=== PATIENT | female | born 1990 | race Caucasian/White ===

== ENCOUNTER → 2016-05-21 | Day surgery (SDC) | payer OTHER, MEDICARE ==
[~2016-05-21] VITALS: Ht 157.5 cm; Wt 68.0 kg
[~2016-05-21] MED LIST: ACIDOPHILUS1 CAP PO; ALPRAZOLAM0.25 M1 PO; ALPRAZOLAM0.5 M4 PO; ALTABAX15 GM TOP; AMBIEN 10MG10 MG PO; AMOXICILLIN500 M3 PO; ANTIVERT 25 MG25 MG PO; AVELOX400 MG PO; BACTRIM DS TAB1 EACH PO; BENEPROTEIN1 EACH PO; BENTYL20 MG PO; CILOXAN 0.50 GTT/1 B OPH; CIPRO 500MG TA500 MG PO; CIPROFLOXACIN500 M2 PO; CLOTRIMAZOLE15 GM TOP; CYANOCOBAL1000 MCG/2 IM; CYCLOBENZAPRINE10 M1 PO; DAKIN'S473 M1 TOP; DEPO-PROVE150 MG/1 M IM; DIFLUCAN 100MG100 MG PO; DILAUDID4 M1 PO; FLAG500 PO; FLUCONAZOLE200 MG PO; FOLIC ACID 1 MG PO; FOLIC ACID1 M1 PO; GABAPENTIN100 M2 PO; HYDROCODON-ACE1 EAC2; KEFLEX500 M1 PO; KEFLEX500 MG PO; LAMICTAL XR100 MG PO; LAMICTAL XR250 MG PO; LAMICTAL25 M1 PO; LAMOTRIGINE100 M2 PO; LAMOTRIGINE100 MG PO; LAMOTRIGINE25 M3 PO; LEVOFLOXACIN500 MG PO; LEVSIN/SL0.125 MG SL; LOMOTIL 0.025 M1 TAB PO; LOMOTIL 2.5-0.1 EACH PO; LOTRISONE CREAM15 GM TOP; MASON NATURAL325 MG PO; MEDROXYPROG150 MG/ML IM; MERCAPTOPURINE50 MG PO; METHOTREXATE25 MG/M2; MIRTAZAPINE7.5 M1 PO; MOTRIN 400 MG400 MG PO; MS CONTIN15 M1 PO; MS CONTIN15 MG PO; MULTI-DAY VITA1 EACH PO; NAPHCON A 0.02515 ML OPH; NEOMYCIN SULFA500 M1 PO; NORCO 325 MG-51 TAB PO; NYSTATIN15 G1 TOP; OMEPRAZOLE40 MG PO; PATADAY 2.5 ML2.5 ML OPH; PERCOCET 325 MG1 TA2 PO; PERCOCET 5-3251 EACH PO; PREDNISONE 20MG20 MG PO; PREDNISONE5 MG PO; PRILOSEC 20MG C20 MG PO; PRILOSEC40 MG PO; PROBIOTIC FORMU1 CA1 PO; PROMETHAZINE HC25 MG PR; PROMETHAZINE25 M1 PO; QUETIAPINE FUM100 MG PO; REGLAN10 MG PO; REGLAN5 MG PO; REMERON15 M2 PO; REMICADE I100 MG/10 IV; SEROQUEL 100MG100 MG PO; STELARA45 MG/0.5 SC; STELARA90 MG/1 ML INJ; STELARA90 MG/1 ML SC; STELARA90 MG/ML SC; TEMAZEPAM15 MG PO; TOBRAMYCIN 5 ML5 ML OPH; Theragran Vitamins PO; ULTRAM50 M1 PO; VANCOMYCIN HYD125 MG PO; VICODIN5-300 PO; VITAB121000 PO; VITAMIN B-121000 MC3 PO; VITAMIN C500 M6 PO; VITAMIN D1000 IU PO; VITAMIN D250000 UNIT PO; VITAMIN D31000 UNI1 PO; ZINC50 M2 PO; ZOFRAN 4MG ORALL4 MG PO; ZOFRAN ODT4 MG PO; ZOFRAN4 M1 PO; ZOLPIDEM TARTRA10 MG PO; [UNRECOGNIZED DRUG - OTHER] PO; [UNRECOGNIZED DRUG - SUPPLY] TP
--- NOTE | 2016-05-21 14:02 | Operative Report ---
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 It is chronic in nature secondary to a wound dehiscence after abdominal surgery secondary to Crohn's disease. We talked about the risks which included definitely visible scarring possibly unsightly symptomatic or infection as well as bleeding. I stated that the wound would need to be opened again of signs of infection should become evident and she would have once again a recurrence of an open wound requiring possibility of prolonged wound care. Once in agreement informed consent was signed. Taken to [facility] placed supine on the table Venodyne boots are placed and general anesthesia was established. The abdomen was prepped and draped in usual sterile fashion. Sitting for the dimensions described above was carried out into the subcutaneous tissue thin visible scar. Incidental small ventral hernia was identified. This was repaired with a 2-0 Prolene closure after ensuring fascial edges were free of tissue. Irrigation was carried out throughout. 3 layer closure was then carried out after excision of the scar for the dimensions described above. In addition Dermabond was used on the skin to make it watertight considering an adjacent colostomy
== END ==
LOC: STS 01:47
DX: T81.31XA Disruption of external operation (surgical) wound, not elsewhere classified, initial encounter (principal); K50.90 Crohn's disease, unspecified, without complications; Z90.49 Acquired absence of other specified parts of digestive tract; K43.9 Ventral hernia without obstruction or gangrene
CPT/HCPCS: 81025; 88304; J0131; J0690; J1100; J1885; J2250; J2405

== ENCOUNTER 2016-09-01 14:24 | Emergency (ER) | payer OTHER, MEDICARE ==
[~2016-09-01] VITALS: Ht 157.5 cm; Wt 65.3 kg
[~2016-09-01 14:24] MED LIST changes: -ALPRAZOLAM0.5 M4 PO; -CYCLOBENZAPRINE10 M1 PO; -DILAUDID4 M1 PO; -FOLIC ACID1 M1 PO; -GABAPENTIN100 M2 PO; -HYDROCODON-ACE1 EAC2; -KEFLEX500 M1 PO; -VITAMIN C500 M6 PO; -VITAMIN D31000 UNI1 PO; -ZINC50 M2 PO
--- NOTE | 2016-09-01 15:35 | ED SKIN/ALLERGY COMPLAINT ---
History of Present Illness General Chief Complaint: General Adult Stated Complaint: PT HAS A WOUND ON THE RT SIDE ? INFECTION Source: patient Exam Limitations: no limitations Allergies Coded Allergies: adhesive tape (Intermediate, RASH 05/18/16) minocycline (Intermediate, RASH 03/08/16) topiramate (From TOPAMAX) (Intermediate, SWELLING 05/18/16) clarithromycin (HIVES 03/08/16) clindamycin (HIVES 03/08/16) loteprednol (From Alrex) ( TOLD SEVERE ALLERGY AFTER DISPENSING, EYE SWELL 10/16) Triage Note: PT HAS CHRONIC WOUND TO RIGHT SIDE OF ABD AND PT THINKS SHE HAS AN INFECTION. PT HAD PART OF HER MUSCLE REMOVED FROM THE RIGHT SIDE OF HER AND SKIN FROM ANUS AND RECTUM USED FOR CLOSURE OF THE WOUND Triage Nurses Notes Reviewed? yes : No Patient currently breastfeeds: No HPI: This patient is a 26-year-old female with past medical history including Crohn's disease who is status post colectomy as well as anus and rectal removal on 07/20 who presented to the emergency department today sent in at the request of her visiting nurse for evaluation of possible wound infection. This patient had muscle removed from her right thigh in order to help with closure of another wound. She reported that her visiting nurse feels that the wound site is getting more infected. She reported that it is gaping, has pus drainage, and redness around it. She denied any pain, fevers, chills, difficult breathing, abdominal pain, nausea, or vomiting. (NEVIN CERDA,ZANDER) Vital Signs & Intake/Output Vital Signs & Intake/Output Vital Signs Date Time Temp Pulse Resp B/P B/P Pulse O2 O2 Flow FiO2 Mean Ox Delivery Rate 09/01 1921 98.4 85 18 112/66 98 Room Air Room Air ED Intake and Output 09/02 0000 09/01 1200 Intake Total Output Total Balance Patient 144 lb Weight Weight Reported by Patient Measurement Method Reconcile Medications Alprazolam 0.5 MG TABLET 1 TAB PO QPM SLEEP (Reported) Ascorbate Calcium (Vitamin C) (Unknown Strength) TABLET (Unknown Dose) PO DAILY SUPPLEMENT (Reported) Cephalexin (Keflex) 500 MG CAPSULE 2 CAP PO BID WOUND Cholecalciferol (Vitamin D3) (Vitamin D3) (Unknown Strength) CAPSULE (Unknown Dose) PO DAILY SUPPLEMENT (Reported) Cyanocobalamin (Vitamin B-12) (Cyanocobalamin Injection) 1,000 MCG/ML VIAL 1 ML IM Q60D SUPPLEMENT (Reported) Cyclobenzaprine HCl 10 MG TABLET 1 TAB PO BID MUSCLE SPASMS (Reported) Folic Acid 1 MG TABLET 1 TAB PO DAILY SUPPLEMENT (Reported) Gabapentin (Unknown Strength) CAPSULE (Unknown Dose) PO Q12H NERVE PAIN ( Reported) Hydrocodone/Acetaminophen (Hydrocodon-Acetaminophen 5-325) (Unknown Strength) TABLET (Unknown Dose) UNKNOWN (Reported) Hydromorphone HCl (Dilaudid) 4 MG TABLET 1 TAB PO DAILY PAIN (Reported) Lamotrigine 25 MG TABLET 2 TAB PO QPM MENTAL HEALTH (Reported) Medroxyprogesterone Acetate (Depo-Provera) 150 MG/1 ML VIAL 150 mg IM Q3M CONTROL (Reported) Ustekinumab (Stelara) 90 MG/ML SYRINGE 90 MG INJ Q8W CROHNS (Reported) ZINC (Unknown Strength) TABLET (Unknown Dose) PO DAILY SUPPLEMENT (Reported) (CECY KRISHNAMURTHY,MARY) Past History Travel History Traveled to [place] past 21 day No Medical History Any Pertinent Medical History? see below for history Neurological: migraine EENT: NONE Cardiovascular: TACHYCARDIA Respiratory: NONE Gastrointestinal: Crohn's disease (since age 9), ulcerative colitis, C DIFF TOTAL COLECTOMY Hepatic: cholelithiasis Renal: NONE Musculoskeletal: osteoarthritis, STAPH INFECTION ON FACE Psychiatric: bipolar disease, depression Endocrine: NONE Blood Disorders: NONE Cancer(s): NONE MARKETING COMMUNICATION MANAGER/Reproductive: NONE Other Medical Hx: PSORIASIS History of MRSA: No History of VRE: No History of CDIFF: No Pneumonia Vaccine: 01/21/16 Influenza Vaccine: 01/21/16 Surgical History Surgical History: hernia repair-umbilical, 06/09/2015: subtotal colectomy with ileostomy; 07/26/2015: i&d, washout of abdominal wound separation; 11/15/2015: exploration under anesthesia- no perianal fistula, but perineal & vaginal candidiasis (all per Dr. Ren) Psychosocial History Who do you live with Mother Services at Home Nursing, Physical Therapy What is your primary language Bulgarian Tobacco Use: Never used ETOH Use: denies use Illicit Drug Use: denies illicit drug use Family History Family History, If Any: FATHER (Crohn's Disease). , Age Unknown; Cause: Unknown cause of morbidity or mortality. BROTHER (Crohn's, A&W.). Age 26. MOTHER (A&W). Age 56. Hx Contributory? No (ZANDER ROONEY PA-C) Review of Systems Review of Systems Constitutional: Reports: no symptoms. EENTM: Reports: no symptoms. Respiratory: Reports: no symptoms. Cardiovascular: Reports: no symptoms. GI: Reports: no symptoms. Genitourinary: Reports: no symptoms. Musculoskeletal: Reports: no symptoms. Skin: Reports: see HPI. Neurological/Psychological: Reports: no symptoms. All Other Systems: Reviewed and Negative (ZANDER ROONEY PA-C) Physical Exam Physical Exam General Appearance: well developed/nourished, no apparent distress, alert, awake Comments: Well-developed well-nourished person in no acute distress HEENT: Normal EENT exam, moist mucous membranes Pupils equally round and reactive to light. Neck: Supple, no lymphadenopathy Back: Antalgic gait Cardiovascular: Regular rate and rhythm with no murmurs Respiratory: Chest nontender. No respiratory distress. Breath sounds clear to auscultation bilaterally Abdomen: Soft, nontender and nondistended Right lower extremity: Approximately 8 cm in length, gaping wound to the medial aspect of the proximal thigh with pus drainage, and a mild amount of active bleeding. No foreign bodies in the wound site. Surrounding erythema and mild amount of surrounding edema Neuro: Alert oriented x3, motor sensory normal, cranial nerves II through XII grossly intact. Skin: No appreciable rash on exposed skin, skin is warm and dry. Psych: Mood and affect is normal, memory and judgment is normal. (ZANDER ROONEY PA-C) Progress Differential Diagnosis: abscess/cellulitis, meningitis/sepsis, wound dehiscence Comments: 09/01/2016 3:59:12 PM: Dr. Yeungr the patient's bedside for evaluation. He is calling Dr. Holly who is this patient's plastic surgeon to discuss a plan. He does not think that the wound is infected. 09/01/2016 4:23:41 PM: I was told that Dr. Holly will be down to the patient's bedside for [id number] evaluation. Currently have from the wound care center that the patient's bedside for evaluation. 09/01/2016 5:49:41 PM: Dr. Holly, plastic surgeon, was at the patient's bedside for [id number] evaluation. He reported that this patient's plastic surgeon is out of [facility], Dr. Wright. He reported that she needs to be seen by this doctor for further care of this wound. 09/01/2016 6:26:49 PM: I spoke to Dr. Wright's partner, Dr. Cunningham. He reported that they will see this patient the office likely next week. He and instructed me to let the patient know that she will need to contact the office tomorrow to have wet-to-dry dressing changes set up. He does not think this patient needs to be admitted or transferred because her white blood cell count is normal and she is afebrile. (ZANDER ROONEY PA-C) Plan of Care: Laboratory Tests 09/01/16 1754: Lactic Acid Cancelled Departure Departure Disposition: HOME OR SELF CARE Condition: Stable Clinical Impression Primary Impression: Wound dehiscence Referrals: ANGELES ARCHIBALD DO (PCP/Family) Additional Instructions: Please call the office of your plastic surgeon tomorrow morning to discuss dressing changes and follow-up in the office. Please take antibiotic as prescribed and for the full duration. Return for any worsening symptoms or concerns. Departure Forms: Customer Survey General Discharge Information Prescriptions: Current Visit Scripts Cephalexin (Keflex) 2 CAP PO BID #[id number] CAP (ZANDER ROONEY PA-C) PA/NEEDLE PUNCH MACHINE OPERATOR HELPER Co-Sign Statement Statement: ED Attending supervision documentation- [] I saw and evaluated the patient. I have also reviewed all the pertinent lab results and diagnostic results. I agree with the findings and the plan of care as documented in the PA's/NEEDLE PUNCH MACHINE OPERATOR HELPER's documentation. x I have reviewed the ED Record and agree with the PA's/NEEDLE PUNCH MACHINE OPERATOR HELPER's documentation. [] Additions or exceptions (if any) to the PAs/NEEDLE PUNCH MACHINE OPERATOR HELPER's note and plan are summarized below: [] (CECY KRISHNAMURTHY,MARY) [] Additions or exceptions (if any) to the PAs/NEEDLE PUNCH MACHINE OPERATOR HELPER's note and plan are summarized below: [] (MARY SAM MD)
[2016-09-01 15:47] LABS: ABSOLUTE BASOPHIL COUNT 0 /CUMM (0.0-0.2); ABSOLUTE EOSINOPHIL COUNT 0.1 /CUMM (0.0-0.7); ABSOLUTE LYMPH COUNT 1.4 /CUMM (1.2-3.4); ABSOLUTE MONOCYTE COUNT 0.5 /CUMM (0.10-0.60); BASOPHIL % 0.5 % (0.0-2.0); EOSINOPHIL % 1.4 % (0-5); GRANULOCYTE % 71.6 % (42.2-75.2); HEMATOCRIT 35.8 % (37-47); MEAN CORPUSCULAR HGB 24.7 PG (27.0-31.0); MEAN CORPUSCULAR HGB CONC 32.2 G/DL (33.0-37.0); MEAN CORPUSCULAR VOLUME 76.8 FL (81.0-99.0); MEAN PLATELET VOLUME 8.8 FL (7.4-10.4); PLATELET COUNT 289 /CUMM (130-400); RBC DISTRIBUTION WIDTH 18.1 % (11.5-14.5); RED BLOOD CELL CT 4.65 /CUMM (4.20-5.40)
[2016-09-01] MEDS ORDERED: FOLIC ACID1 M1 PO (16:13)
[2016-09-01] MEDS ORDERED: ALPRAZOLAM0.5 M4 PO (16:13)
[2016-09-01] MEDS ORDERED: DILAUDID4 M1 PO (16:14)
[2016-09-01] MEDS ORDERED: VITAMIN C500 M6 PO (16:15)
[2016-09-01] MEDS ORDERED: HYDROCODON-ACE1 EAC2 (16:15)
[2016-09-01] MEDS ORDERED: VITAMIN D31000 UNI1 PO (16:17)
[2016-09-01] MEDS ORDERED: GABAPENTIN100 M2 PO (16:18)
[2016-09-01] MEDS ORDERED: CYCLOBENZAPRINE10 M1 PO (16:18)
[2016-09-01] MEDS ORDERED: ZINC50 M2 PO (16:19)
[2016-09-01] MEDS ORDERED: KEFLEX500 M1 PO (18:35)
[2016-09-01 19:21] VITALS: BP 112/66
--- NOTE | 2016-09-02 13:09 | Cons- Plastic Surgery ---
General Information and HPI Consulting Request Date of Consult: 09/01/16 Requested By: dr tamayo Reason for Consult: Wound right thigh Source of Information: patient Exam Limitations: no limitations History of Present Illness: Patient has active Crohn's disease and recently underwent surgical resection of the anus and rectum as reported by patient's mother. This was done at [facility]. She had a right gracilis muscle flap to assist in closure. The patient noticed approximately 2 or so weeks after surgery she noticed a problem with an opening of the right thigh wound.She reports no fever or chills. Allergies/Medications Allergies: Coded Allergies: adhesive tape (Intermediate, RASH 05/18/16) minocycline (Intermediate, RASH 03/08/16) topiramate (From TOPAMAX) (Intermediate, SWELLING 05/18/16) clarithromycin (HIVES 03/08/16) clindamycin (HIVES 03/08/16) loteprednol (From Alrex) (MD TOLD SEVERE ALLERGY AFTER DISPENSING, EYE SWELL 10/16) Home Med List: Alprazolam 0.5 MG TABLET 1 TAB PO QPM SLEEP (Reported) Ascorbate Calcium (Vitamin C) (Unknown Strength) TABLET (Unknown Dose) PO DAILY SUPPLEMENT (Reported) Cephalexin (Keflex) 500 MG CAPSULE 2 CAP PO BID WOUND Cholecalciferol (Vitamin D3) (Vitamin D3) (Unknown Strength) CAPSULE (Unknown Dose) PO DAILY SUPPLEMENT (Reported) Cyanocobalamin (Vitamin B-12) (Cyanocobalamin Injection) 1,000 MCG/ML VIAL 1 ML IM Q60D SUPPLEMENT (Reported) Cyclobenzaprine HCl 10 MG TABLET 1 TAB PO BID MUSCLE SPASMS (Reported) Folic Acid 1 MG TABLET 1 TAB PO DAILY SUPPLEMENT (Reported) Gabapentin (Unknown Strength) CAPSULE (Unknown Dose) PO Q12H NERVE PAIN ( Reported) Hydrocodone/Acetaminophen (Hydrocodon-Acetaminophen 5-325) (Unknown Strength) TABLET (Unknown Dose) UNKNOWN (Reported) Hydromorphone HCl (Dilaudid) 4 MG TABLET 1 TAB PO DAILY PAIN (Reported) Lamotrigine 25 MG TABLET 2 TAB PO QPM MENTAL HEALTH (Reported) Medroxyprogesterone Acetate (Depo-Provera) 150 MG/1 ML VIAL 150 mg IM Q3M CONTROL (Reported) Ustekinumab (Stelara) 90 MG/ML SYRINGE 90 MG INJ Q8W CROHNS (Reported) ZINC (Unknown Strength) TABLET (Unknown Dose) PO DAILY SUPPLEMENT (Reported) Past History Medical History Neurological: migraine EENT: NONE Cardiovascular: TACHYCARDIA Respiratory: NONE Gastrointestinal: Crohn's disease (since age 9), ulcerative colitis, C DIFF TOTAL COLECTOMY Hepatic: cholelithiasis Renal: NONE Musculoskeletal: osteoarthritis, STAPH INFECTION ON FACE Psychiatric: bipolar disease, depression Endocrine: NONE Blood Disorders: NONE Cancer(s): NONE 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 Ren) Family History Relations & Conditions If Any: FATHER (Crohn's Disease). , Age Unknown; Cause: Unknown cause of morbidity or mortality. BROTHER (Crohn's, A&W.). Age 26. MOTHER (A&W). Age 56. Psychosocial History Who Do You Live With? parent, brother Services at Home: Nursing, Physical Therapy Primary Language: Yakut ETOH Use: denies use Illicit Drug Use: denies illicit drug use Living Will? no Power of Trade Show Manager/HCP? no Functional Ability ADLs Independent: dressing, eating, toileting, bathing. Ambulation: independent IADLs Independent: shopping, housework, finances, food prep, telephone, medication admin. Needs Assist: transportation. Review of Systems Review of Systems: All other systems negative Exam & Diagnostic Data Vital Signs and I&O Vital Signs Date Time Temp Pulse Resp B/P B/P Pulse O2 O2 Flow FiO2 Mean Ox Delivery Rate 09/01 1921 98.4 85 18 112/66 98 Room Air Room Air 09/01 1634 98.6 87 18 104/60 100 Room Air 09/01 1432 96.9 120 16 117/73 95 Room Air Intake & Output 09/02 1600 09/02 0800 09/02 0000 09/01 1600 09/01 0800 09/01 0000 Intake Total Output Total Balance Patient 144 lb Weight Weight Reported by Patient Measurement Method Physical Exam: Semination shows the following abnormalities. The right thigh immediately has a gastrocnemius harvest site that has dehisced. There is some dry irritation of the periwound skin margin without necessarily having the presence of cellulitis. The wound bed is somewhat dry. Examination of the buttock shows complete dehiscence of the damien cleft incision. Probes deeply. Assessment/Plan Assessment/Plan Complete wound dehiscence postoperative anal rectal excision in a Crohn's patient with a gracilis muscle flap. The patient requires a team approach including infectious disease evaluation of the wounds in addition to plastic surgery. The patient may require additional flap surgery or prolonged wound care and is best managed by her plastic surgeon. Patient is currently not septic and feels well and it is suggested she return for services with her team at [facility]. The patient and her mother appear to understand the benefits of that and they state they will do so. Consult Acknowledgment - Thank you for your consult request.
== END 2016-09-01 19:23 ==
LOC: ERH 14:24
PROVIDERS: Physician Assistant
DX: T81.30XA Disruption of wound, unspecified, initial encounter (principal); Y84.8 Other medical procedures as the cause of abnormal reaction of the patient, or of later complication, without mention of misadventure at the time of the procedure
CPT/HCPCS: 87040

== ENCOUNTER 2017-08-11 12:55 | Emergency (ER) | payer OTHER, MEDICARE ==
[~2017-08-11 12:55] MED LIST changes: +ALPRAZOLAM0.5 M4 PO; +CYCLOBENZAPRINE10 M1 PO; +DILAUDID4 M1 PO; +FOLIC ACID1 M1 PO; +GABAPENTIN100 M2 PO; +HYDROCODON-ACE1 EAC2; +KEFLEX500 M1 PO; +VITAMIN C500 M6 PO; +VITAMIN D31000 UNI1 PO; +ZINC50 M2 PO
--- NOTE | 2017-08-11 18:09 | ED SKIN/ALLERGY COMPLAINT ---
History of Present Illness General Chief Complaint: Skin Rash/ Abcess Stated Complaint: ? WOUND INFECTION Source: patient Exam Limitations: no limitations Vital Signs & Intake/Output Vital Signs & Intake/Output Vital Signs Date Time Temp Pulse Resp B/P B/P Pulse O2 O2 Flow FiO2 Mean Ox Delivery Rate 08/11 2022 98.8 94 16 121/76 98 Room Air 08/11 2016 Room Air 08/11 1305 98.0 90 16 137/81 98 Room Air Allergies Coded Allergies: adhesive tape (Intermediate, RASH 05/18/16) minocycline (Intermediate, RASH 03/08/16) topiramate (From TOPAMAX) (Intermediate, SWELLING 05/18/16) clarithromycin (HIVES 03/08/16) clindamycin (HIVES 03/08/16) loteprednol (From Alrex) ( TOLD SEVERE ALLERGY AFTER DISPENSING, EYE SWELL 10/16) Reconcile Medications Alprazolam 0.5 MG TABLET 1 TAB PO QPM SLEEP (Reported) Ascorbate Calcium (Vitamin C) (Unknown Strength) TABLET (Unknown Dose) PO DAILY SUPPLEMENT (Reported) Cephalexin (Keflex) 500 MG CAPSULE 2 CAP PO BID WOUND Cholecalciferol (Vitamin D3) (Vitamin D3) (Unknown Strength) CAPSULE (Unknown Dose) PO DAILY SUPPLEMENT (Reported) Cyanocobalamin (Vitamin B-12) (Cyanocobalamin Injection) 1,000 MCG/ML VIAL 1 ML IM Q60D SUPPLEMENT (Reported) Cyclobenzaprine HCl 10 MG TABLET 1 TAB PO BID MUSCLE SPASMS (Reported) Folic Acid 1 MG TABLET 1 TAB PO DAILY SUPPLEMENT (Reported) Gabapentin (Unknown Strength) CAPSULE (Unknown Dose) PO Q12H NERVE PAIN ( Reported) Hydrocodone/Acetaminophen (Hydrocodon-Acetaminophen 5-325) (Unknown Strength) TABLET (Unknown Dose) UNKNOWN (Reported) Hydromorphone HCl (Dilaudid) 4 MG TABLET 1 TAB PO DAILY PAIN (Reported) Lamotrigine 25 MG TABLET 2 TAB PO QPM MENTAL HEALTH (Reported) Medroxyprogesterone Acetate (Depo-Provera) 150 MG/1 ML VIAL 150 mg IM Q3M CONTROL (Reported) Ustekinumab (Stelara) 90 MG/ML SYRINGE 90 MG INJ Q8W CROHNS (Reported) ZINC (Unknown Strength) TABLET (Unknown Dose) PO DAILY SUPPLEMENT (Reported) Triage Note: PT TO ED C/O ?INFECTION TO HER CHERYL DRAIN SITE. PER MOM STATES WHEN SHE CHANGED THE DSG LAST NIGHT AREA WAS PINK. PER PT SHE HAD A FEVER LAST NIGHT, BUT AFEBRILE NOW IN TRIAGE. DRAIN IS TO HER BUTTOCKS REGION AND SURGERY WAS LAST WEEK. PTS DOCTOR IS OUT OF [place] AND TOLD TO COME TO THE ER. SURGERY THAT PT HAD WAS TO CLOSE HER WOUND FROM WHEN SHE HAD HER RECTUM REMOVED A YEAR AGO. Triage Nurses Notes Reviewed? yes Onset: Gradual Duration: day(s): (1) Timing: recent history Severity: moderate Severity Numbers: 6 : No Patient currently breastfeeds: No HPI: Patient is a 26-year-old female with extensive history of Crohn's presenting to the emergency department with chief complaint of pain around a drain site. Patient reports that she had her rectum and anus removed about one year ago and due to healing issues she recently had a flap closure procedure on her rectum done 1 week ago in [place] at [facility]. She came in [facility] to the emergency department for fevers up to 101 at home yesterday evening. Denies any fevers today. No nausea or vomiting. According to mom when she changed the dressing she noticed that the skin was pink in color. She also noted some purulent drainage from the area. They report that there is been about 5 mL of bloody fluid coming out of the drain since having it. Wondering if they can have the drain removed. Pain is currently mild to moderate. Worse when she touches the area. No nausea or vomiting. Tried calling the doctor's in [place] but they were unable to respond her messages. They told her if she ever had an issue with the surgical incision and she should go to a local hospital for evaluation. (Helen Pineda) Past History Travel History Traveled to [place] past 21 day No Medical History Any Pertinent Medical History? see below for history Neurological: migraine EENT: NONE Cardiovascular: TACHYCARDIA Respiratory: NONE Gastrointestinal: Crohn's disease (since age 9), ulcerative colitis, C DIFF TOTAL COLECTOMY Hepatic: cholelithiasis Renal: NONE Musculoskeletal: osteoarthritis, STAPH INFECTION ON FACE Psychiatric: bipolar disease, depression Endocrine: NONE Blood Disorders: NONE Cancer(s): NONE CAN WORKER/Reproductive: NONE Other Medical Hx: PSORIASIS History of MRSA: No History of VRE: No History of CDIFF: No Surgical History Surgical History: hernia repair-umbilical, 06/09/2015: subtotal colectomy with ileostomy; 07/26/2015: i&d, washout of abdominal wound separation; 11/15/2015: exploration under anesthesia- no perianal fistula, but perineal & vaginal candidiasis (all per Dr. Ren) Psychosocial History Who do you live with Mother Services at Home Nursing, Physical Therapy What is your primary language Ukrainian Tobacco Use: Never used Family History Family History, If Any: FATHER (Crohn's Disease). , Age Unknown; Cause: Unknown cause of morbidity or mortality. BROTHER (Crohn's, A&W.). Age 26. MOTHER (A&W). Age 56. Hx Contributory? No (Helen Pineda) Review of Systems Review of Systems Constitutional: Reports: fever. Comments Review of systems: See HPI, All other systems negative. Constitutional, no chills or weight loss HEENT: No visual changes no sore throat no congestion Cardiovascular: No chest pain ,palpitation , orthopnea or ankle swelling Skin, no jaundice Respiratory: No dyspnea cough sputum or hemoptysis GI: No nausea no vomiting : No dysuria No hematuria Muscle skeletal: no back pain, no neck pain, Neurologic: No numbness no confusion Psych: No stress anxiety or depression,. Heme/endocrine: No bruising no bleeding no polyuria or polydipsia Immunology: No splenectomy or history of AIDS (Helen Pineda) Physical Exam Physical Exam General Appearance: well developed/nourished, no apparent distress, alert, awake , comfortable Comments: Well-developed well-nourished person in no acute distress HEENT: Atraumatic, normocephalic Neck: Normal inspection Back: Nontender Cardiovascular: Regular rate and rhythms Respiratory: No respiratory distress.breath sounds clear to auscultation bilaterally Extremity: No edema Neuro: Alert oriented x3 Skin: Drain in place over the left mid-gluteus, no surrounding erythema, no palpable fluctuance or firmness below/around the drain. Serosanguineous fluid approximately 3 mL noted in the drain. Flap closure of the rectum is well- appearing, mild pink appearing skin surrounding the suture line. Sutures in place. Small amount of purulent drainage noted on the dressing. Psych: Mood and affect is normal, memory and judgment is normal. (Helen Pineda) Progress Differential Diagnosis: sepsis, cellulitis, wound check, wound dehiscence Plan of Care: Orders Procedure Date/time Status BLOOD CULTURE 08/12 1807 Active COMPREHENSIVE METABOLIC PANEL 08/12 1807 Complete CBC WITHOUT DIFFERENTIAL 08/12 1807 Complete Laboratory Tests 08/11/171899: Anion Gap 17 H, Estimated GFR > 60, BUN/Creatinine Ratio 18.6, Glucose 79, Calcium 9.5, Total Bilirubin 0.6, AST 16, ALT 49, Alkaline Phosphatase 110, Total Protein 8.3 H, Albumin 4.3, Globulin 4.0, Albumin/Globulin Ratio 1.1, CBC w Diff NO MAN DIFF REQ, RBC 4.57, MCV 87.1, MCH 28.0, MCHC 32.2 L, RDW 13.0, MPV 8.0, Gran % 84.9 H, Lymphocytes % 9.9 L, Monocytes % 4.2, Eosinophils % 0.7, Basophils % 0.3, Absolute Granulocytes 10.3 H, Absolute Lymphocytes 1.2, Absolute Monocytes 0.5, Absolute Eosinophils 0.1, Absolute Basophils 0 Microbiology 08/11 1909 BLOOD: Blood Culture - RECD 08/11 1899 BLOOD: Blood Culture - RECD 08/11/2017 7:52:27 PM patient is afebrile currently, white count of 12, slight left shift. Spoke with Dr. Parish, patient's surgeon at [facility]. Recommending we shipped patient to [facility] so that they can further evaluate and treat as needed since patient recently had surgical repair 1 week ago. Transfer was arranged. Dr. Parish is accepting physician. Patient will be sent by [facility]. Patient is nontoxic, pain medication ordered as she declined initially on initial evaluation. Dr. Prince, he agrees with plan. (Helen Pineda) Departure Departure Time of Disposition: 1950 Disposition: OTHER GENERAL HOSPITAL (ACUTE) Condition: Stable Clinical Impression Primary Impression: Wound infection after surgery Qualifiers: Encounter type: initial encounter Qualified Code: T81.4XXA - Infection following a procedure, initial encounter Ruled Out Impressions: Wound infection Referrals: Janneth Hernandez DO (PCP/Family) Departure Forms: Customer Survey General Discharge Information (Helen Pineda) PA/AFTERNOON BABYSITTER Co-Sign Statement Statement: ED Attending supervision documentation- [] I saw and evaluated the patient. I have also reviewed all the pertinent lab results and diagnostic results. I agree with the findings and the plan of care as documented in the PA's/AFTERNOON BABYSITTER's documentation. [x] I have reviewed the ED Record and agree with the PA's/AFTERNOON BABYSITTER's documentation. [] Additions or exceptions (if any) to the PAs/AFTERNOON BABYSITTER's note and plan are summarized below: [] (Suresh KRISHNAMURTHY,Chevy Page)
[2017-08-11 19:18] LABS: ABSOLUTE BASOPHIL COUNT 0 /CUMM (0.0-0.2); ABSOLUTE EOSINOPHIL COUNT 0.1 /CUMM (0.0-0.7); ABSOLUTE GRANULOCYTE CT 10.3 /CUMM (1.4-6.5); ABSOLUTE LYMPH COUNT 1.2 /CUMM (1.2-3.4); ABSOLUTE MONOCYTE COUNT 0.5 /CUMM (0.10-0.60); BASOPHIL % 0.3 % (0.0-2.0); EOSINOPHIL % 0.7 % (0-5); GRANULOCYTE % 84.9 % (42.2-75.2); HEMATOCRIT 39.8 % (37-47); MEAN CORPUSCULAR HGB CONC 32.2 G/DL (33.0-37.0); MEAN CORPUSCULAR VOLUME 87.1 FL (81.0-99.0); PLATELET COUNT 342 /CUMM (130-400); RED BLOOD CELL CT 4.57 /CUMM (4.20-5.40); WHITE BLOOD CELL COUNT 12.1 /CUMM (4.8-10.8)
[2017-08-11 20:23] VITALS: BP 121/76
== END 2017-08-11 21:04 | disposition short-term general hospital (02) ==
LOC: ERH 12:55
PROVIDERS: Physician Assistant
DX: T81.4XXA Infection following a procedure, initial encounter (principal)
CPT/HCPCS: 87040; 96374; 96376

== ENCOUNTER 2018-01-27 12:14 | Emergency (ER) | payer OTHER, MEDICARE ==
[~2018-01-27 12:14] MED LIST changes: +CALMOSEPTINE OI71 GM TOP; +CYCLOBENZAPRINE5 M2 PO; +DITROPAN XL10 M1 PO; +DITROPAN XL15 M1 PO; +MORPHINE SULFAT30 M3 PO; +MORPHINE SULFAT30 M7 PO; +NYSTATIN15 G2 TOP; +SANTYL30 GM TOP; +VASHE WOUND S1000 ML TOP; +XANAX0.5 M1 PO; +XANAX1 M1 PO
[2018-01-27 12:21] VITALS: BP 114/74
--- NOTE | 2018-01-27 12:25 | ED GENERAL ADULT ---
See Addendum History of Present Illness General Chief Complaint: General Adult Stated Complaint: MED REFILL Source: patient, family, old records Exam Limitations: no limitations Vital Signs & Intake/Output Vital Signs & Intake/Output Vital Signs Date Time Temp Pulse Resp B/P B/P Pulse O2 O2 Flow FiO2 Mean Ox Delivery Rate 01/27 1221 97.4 87 18 114/74 98 Room Air Allergies Coded Allergies: adhesive tape (Intermediate, RASH 11/14/17) minocycline (Intermediate, RASH 11/14/17) topiramate (From TOPAMAX) (Intermediate, SWELLING 11/14/17) clarithromycin (HIVES 11/14/17) clindamycin (HIVES 11/14/17) loteprednol (From Alrex) ( TOLD SEVERE ALLERGY AFTER DISPENSING, EYE SWELL ) Reconcile Medications Alprazolam 0.5 MG TABLET 1 TAB PO QPM SLEEP (Reported) Alprazolam (Xanax) 1 MG TABLET 0.5 TAB PO QPM anxiety Alprazolam (Xanax) 1 MG TABLET 0.5 TAB PO DAILY anxiety Ascorbate Calcium (Vitamin C) (Unknown Strength) TABLET (Unknown Dose) PO DAILY SUPPLEMENT (Reported) Cholecalciferol (Vitamin D3) (Vitamin D3) (Unknown Strength) CAPSULE (Unknown Dose) PO DAILY SUPPLEMENT (Reported) Collagenase Clostridium Hist. (Santyl) 250 UNIT/GRAM OINT...G. 1 A TOP D WOUND (Reported) Cyanocobalamin (Vitamin B-12) (Cyanocobalamin Injection) 1,000 MCG/ML VIAL 1 ML IM SEE ADMIN CRITERIA SUPPLEMENT (Reported) INJECTION EVERY 10 WEEKS Cyclobenzaprine HCl 5 MG TABLET 1 TAB PO Q8H PRN MUSCLE SPASMS (Reported) Diphenoxylate HCl/Atropine (Lomotil 2.5-0.025 MG Tablet) 2.5 MG-0.025 MG TABLET 1-2 TAB PO 4 TIMES/DAY PRN DIARRHEA (Reported) Folic Acid 1 MG TABLET 1 TAB PO DAILY SUPPLEMENT (Reported) Gabapentin (Unknown Strength) CAPSULE 300 MG PO QPM NERVE PAIN (Reported) Hydromorphone HCl (Dilaudid) 4 MG TABLET 1 TAB PO Q4H PRN BREAKTHROUGH PAIN ( Reported) Lamotrigine 25 MG TABLET 2 TAB PO QPM MENTAL HEALTH (Reported) Lamotrigine (Lamictal) 25 MG TABLET 2 TAB PO QHS depression Medroxyprogesterone Acetate (Depo-Provera) 150 MG/1 ML VIAL 150 mg IM Q3M CONTROL (Reported) Menthol/Zinc Oxide (Calmoseptine Ointment) 0.44 %-20.6 % OINT...G. 1 ELEN TOP BID ON WOUND (Reported) Morphine Sulfate (Morphine Sulfate ER) 30 MG TABLET.ER 1 TAB PO BID PAIN ( Reported) Nystatin 100,000 UNIT/GRAM CREAM..G. 1 ELEN TOP QAM GROIN (Reported) apply to affected area(s) Nystatin 100,000 UNIT/GRAM POWDER 1 ELEN TOP QPM GROIN (Reported) Oxybutynin Chloride (Ditropan XL) 15 MG TAB.ER.24 1 TAB PO BID BLADDER ( Reported) Sodium Chlor/Hypochlorous Acid (Vashe Wound Solution) 0.033 % IRRIG.SOLN 1 ELEN TOP QAM ON WOUND (Reported) ZINC (Unknown Strength) TABLET (Unknown Dose) PO DAILY SUPPLEMENT (Reported) Triage Note: 27 YO FEMALE TO TRIAGE FOR MED REFILL. REPORTS SHE WAS 15 MINUTES LATE HER HER APPT AT [facility] AND THEY RECHEDUALED HER UNTIL MARCH, REPORTS SHE NEEDS LAMICTAL 50MG AND XANAX 0.5MG. Triage Nurses Notes Reviewed? yes Onset: Gradual Duration: week(s): : No Patient currently breastfeeds: No HPI: 27yo female with hx of depression, anxiety presents emergency department requesting medication refill. Patient states that she required specialized GI surgery in August and this caused her to miss her psychiatric appointments with [facility]. Since missing these appointments the patient has been struggling to refill her medications. Patient has gone through another intake evaluation however her first appointment with her psychiatrist is not until March. Patient is requesting refill of her Ativan 1 mg and Lamictal 50mg. she is present with her mother who concurs with her story. (Zelda SHIPMAN,Lauren Brewer) Past History Travel History Traveled to [place] past 21 day No Medical History Any Pertinent Medical History? see below for history Neurological: migraine EENT: NONE Cardiovascular: TACHYCARDIA Respiratory: NONE Gastrointestinal: Crohn's disease (since age 9), ulcerative colitis, C DIFF TOTAL COLECTOMY Hepatic: cholelithiasis Renal: NONE Musculoskeletal: STAPH INFECTION ON FACE Psychiatric: bipolar disease, depression Endocrine: NONE Blood Disorders: NONE Cancer(s): NONE ASSISTANT PROFESSOR OF NURSING/Reproductive: NONE Other Medical Hx: PSORIASIS History of MRSA: No History of VRE: No History of CDIFF: No Surgical History Surgical History: hernia repair-umbilical, 06/09/2015: subtotal colectomy with ileostomy; 07/26/2015: i&d, washout of abdominal wound separation; 11/15/2015: exploration under anesthesia- no perianal fistula, but perineal & vaginal candidiasis (all per Dr. Ren) Psychosocial History Who do you live with Mother Services at Home Nursing, Physical Therapy What is your primary language Yi Tobacco Use: Never used Family History Family History, If Any: FATHER (Crohn's Disease). , Age Unknown; Cause: Unknown cause of morbidity or mortality. BROTHER (Crohn's, A&W.). Age 26. MOTHER (A&W). Age 56. Hx Contributory? No (Lauren Figueroa) Review of Systems Review of Systems Constitutional: Reports: no symptoms. EENTM: Reports: no symptoms. Respiratory: Reports: no symptoms. Cardiovascular: Reports: no symptoms. GI: Reports: no symptoms. Genitourinary: Reports: no symptoms. Musculoskeletal: Reports: no symptoms. Skin: Reports: no symptoms. Neurological/Psychological: Reports: see HPI. Hematologic/Endocrine: Reports: no symptoms. Immunologic/Allergic: Reports: no symptoms. All Other Systems: Reviewed and Negative (Lauren Figueroa) Physical Exam Physical Exam General Appearance: well developed/nourished, no apparent distress, alert, awake Head: atraumatic, normal appearance Eyes: Bilateral: normal appearance. Ears, Nose, Throat: hearing grossly normal Neck: normal inspection, supple, full range of motion Respiratory: no respiratory distress Back: normal inspection, normal range of motion Extremities: normal inspection Neurologic/Psych: awake, alert, oriented x 3 Skin: intact, normal color, warm/dry Core Measures ACS in differential dx? No CVA/TIA Diagnosis: No Sepsis Present: No Sepsis Focused Exam Completed? No (Lauren Figueroa) Progress Differential Diagnoses I considered the following diagnoses in my evaluation of the patient: [ Medication refill, depression, anxiety] Plan of Care: Per CT CONTACT LENS INSPECTOR the patient has no outstanding benzodiazepine prescriptions. Will provide short-term refill of these medications to help patient with her symptoms until she sees her psychiatry provider. Patient denies suicidal ideation at this time. She was offered evaluation by crisis provider however she declines. Initial ED EKG: none (Lauren Figueroa) Departure Departure Disposition: HOME OR SELF CARE Condition: Stable Clinical Impression Primary Impression: Medication refill Referrals: Janneth Hernandez DO (PCP/Family) Additional Instructions: take medications as prescribed and follow up with care as scheduled. return with worsening symptoms or concerns. Please note that there might be incidental findings in your evaluation that are unrelated to the current emergency department visit. Please notify your primary care doctor about this emergency department visit in order to obtain and review all of the testing performed so that these incidental findings can be monitored as needed. If you had an x-ray performed, please understand that some fractures may not be seen on the initial set of x-rays. If your symptoms persist you might need a repeat set of x-rays to check for such a fracture. If you had a laceration evaluated, please understand that foreign bodies such as glass or wood may not be visible to the naked eye or on plain x-rays. If the wound becomes red, swollen, increasingly more painful or if there is any drainage from the wound, please have it reevaluated by a physician for the possibility of a retained foreign body. If you're unable to follow up as outlined in the discharge instructions please return to the emergency department. Thank you for choosing the [facility] Emergency Department for your care. It was a pleasure to serve you today. Departure Forms: Customer Survey General Discharge Information Prescriptions: Current Visit Scripts Alprazolam (Xanax) 0.5 TAB PO DAILY #10 TAB Lamotrigine (Lamictal) 2 TAB PO QHS #60 TAB (Lauren Figueroa) PA/SENIOR INSTRUMENTATION ENGINEER Co-Sign Statement Statement: ED Attending supervision documentation- [] I saw and evaluated the patient. I have also reviewed all the pertinent lab results and diagnostic results. I agree with the findings and the plan of care as documented in the PA's/SENIOR INSTRUMENTATION ENGINEER's documentation. [x] I have reviewed the ED Record and agree with the PA's/SENIOR INSTRUMENTATION ENGINEER's documentation. [] Additions or exceptions (if any) to the PAs/SENIOR INSTRUMENTATION ENGINEER's note and plan are summarized below: [] (Carla KRISHNAMURTHY, [place]vares) Critical Care Note Critical Care Note Critical Care Time: non-applicable (Zelda SHIPMAN,Lauren Brewer)
[2018-01-27] MEDS ORDERED: LAMICTAL25 M1 PO (12:42)
[2018-01-27] MEDS ORDERED: XANAX1 M1 PO (12:42)
== END 2018-01-27 13:15 ==
LOC: ERH 12:14
DX: Z76.0 Encounter for issue of repeat prescription (principal)
CPT/HCPCS: 99281